=== PATIENT | female | born 1965 | race Caucasian/White ===

== ENCOUNTER 2022-06-28 14:01 | Emergency (ER) | payer SELFPAY ==
[~2022-06-28] VITALS: Ht 152.4 cm; Wt 65.4 kg
--- NOTE | 2022-06-28 14:50 | ED General ---
General Chief Complaint: Trauma-Non Activation Stated Complaint: ABDOMINAL,KNEE, AND LOWER BACK PAIN Nursing Triage Note: PT AMB TO [facility] 4 WITH COMPLAINT OF LEFT RIB/SIDE, KNEE PAIN. STATES SHE FELL OFF HER FIFTH WHEEL YESTERDAY AND LANDED ON LEFT SIDE. STATES SHE TOOK A TRAMADOL THIS MORNING AND DID NOT IMPROVE PAIN. STATES HAD NECK SURGERY RECENTLY. Source of Information: Patient Exam Limitations: No Limitations (JAKOB PEDRO MED STUDENT) History of Present Illness Date Seen by Provider: Jun 28, 2022 Time Seen by Provider: 14:43 Initial Comments Robert La is a 57 yo female who presents for back pain. Pt has hx of depression and COPD. Pt reports two days ago she fell off the top of her camper after slipping. She denies LOC or hitting her head. She does not remember what part of her body that made contact with the ladder and then the ground, but states her left chest, thoracic region and left knee hurt. The pain is constant and 8/10. Pt reports coughing and sneezing make the pain worse. She recently had neck surgery a month ago for a bulging disc and was prescribed toradol, so she took that with no relief. She has also taken ibuprofen. Pt is having trouble sleeping d/t pain. She vomited once last night and once this morning. Pt is hypertensive at 167/85. She is writhing around the bed in pain, stating she can't get comfortable. Timing/Duration: 1-2 Days Severity: Severe Modifying Factors: improves with Movement Associated Systoms: Nausea/Vomiting (JAKOB PEDRO MED STUDENT) Allergies and Home Medications Allergies Coded Allergies: Sulfa (Sulfonamide Antibiotics) (Verified Allergy, Unknown, 06/28/22) Patient Home Medication List Home Medication List Reviewed: Yes (NIECY MARQUES MD) Hydrocodone/Acetaminophen (Hydrocodone-Acetamin 7.5-325) 7.5 Mg-325 Mg Tablet, 1 EACH PO Q6H PRN for PAIN-MODERATE (5-7) Prescribed by: NIECY MARQUES on 06/28/22 1214 Review of Systems Review of Systems Constitutional: No chills, No fever EENTM: No blurred vision, No vision loss Respiratory: No cough, No short of breath Cardiovascular: No chest pain, No palpitations Gastrointestinal: nausea, vomiting Genitourinary: No dysuria, No frequency Musculoskeletal: back pain, other (left rib pain) Skin: No lesions, No lumps Psychiatric/Neurological: Denies Headache, Denies Numbness, Denies Paresthesia Hematologic/Lymphatic: No Symptoms Reported Immunological/Allergic: no symptoms reported (JAKOB PEDRO MED STUDENT) Past Fpnvivn-Vmkxoy-Akgnxa Hx Patient Social History Tobacco Use?: Yes Tobacco type used: Cigarettes Smoking Status: Current Everyday Smoker Use of E-Cig and/or Vaping dev: No Substance use?: No Alcohol Use?: No Pt feels they are or have been: No (JAKOB PEDRO STUDENT) Physical Exam Vital Signs Vital Signs - First Documented 06/28/22 14:06 Pulse 102 Resp 20 B/P (MAP) 167/85 (112) Pulse Ox 95 O2 Delivery Room Air (NIECY MARQUES MD) Vital Signs Capillary Refill : Less Than 3 Seconds (JAKOB PEDRO MED STUDENT) Height, Weight, BMI Height: '" Weight: lbs. oz. kg; 28.00 BMI Method: General Appearance: No Apparent Distress, WD/WN HEENT: PERRL/EOMI Neck: Full Range of Motion, Normal Inspection Respiratory: Chest Non Tender, Lungs Clear Cardiovascular: No Murmur, Tachycardia Gastrointestinal: Normal Bowel Sounds, Non Tender, Soft Back: Vertebral Tenderness (T6-T12 tender to palpation), Other (no bruising noted) Extremity: No Pedal Edema, Other (left knee painful to palpation, but no joint instability noted) Neurologic/Psychiatric: Alert, Oriented x3, Normal Mood/Affect Skin: Normal Color, Warm/Dry Lymphatic: No Adenopathy Comments Tenderness to palpation across left chest at midaxillary line rib 4-8 (JAKOB PEDRO MED STUDENT) Progress/Results/Core Measures Suspected Sepsis SIRS Temperature: Pulse: 102 Respiratory Rate: 20 Laboratory Tests 06/28/22 16:09: White Blood Count 9.1 Blood Pressure 167 /85 Mean: 112 Laboratory Tests 06/28/22 16:09: Creatinine 0.63, Platelet Count 112L (JAKOB PEDRO MED STUDENT) Results/Orders Lab Results Laboratory Tests Test 06/28/22 16:09 Range/Units White Blood Count 9.1 4.3-11.0 10^3/uL Red Blood Count 4.26 3.80-5.11 10^6/uL Hemoglobin 13.4 11.5-16.0 g/dL Hematocrit 40 35-52 % Mean Corpuscular Volume 93 80-99 fL Mean Corpuscular Hemoglobin 32 25-34 pg Mean Corpuscular Hemoglobin Concent 34 32-36 g/dL Red Cell Distribution Width 15.2 H 10.0-14.5 % Platelet Count 112 L 130-400 10^3/uL Mean Platelet Volume 10.1 9.0-12.2 fL Immature Granulocyte % (Auto) 0 % Neutrophils (%) (Auto) 57 42-75 % Lymphocytes (%) (Auto) 31 12-44 % Monocytes (%) (Auto) 10 0-12 % Eosinophils (%) (Auto) 2 0-10 % Basophils (%) (Auto) 1 0-10 % Neutrophils # (Auto) 5.2 1.8-7.8 X 10^3 Lymphocytes # (Auto) 2.8 1.0-4.0 X 10^3 Monocytes # (Auto) 0.9 0.0-1.0 X 10^3 Eosinophils # (Auto) 0.2 0.0-0.3 10^3/uL Basophils # (Auto) 0.1 0.0-0.1 10^3/uL Immature Granulocyte # (Auto) 0.0 0.0-0.1 10^3/uL Sodium Level 143 135-145 MMOL/L Potassium Level 3.9 3.6-5.0 MMOL/L Chloride Level 112 H 98-107 MMOL/L Carbon Dioxide Level 20 L 21-32 MMOL/L Anion Gap 11 5-14 MMOL/L Blood Urea Nitrogen 10 7-18 MG/DL Creatinine 0.63 0.60-1.30 MG/DL Estimat Glomerular Filtration Rate 104 BUN/Creatinine Ratio 16 Glucose Level 91 70-105 MG/DL Calcium Level 8.6 8.5-10.1 MG/DL (NIECY MARQUES MD) My Orders Orders - NIECY MARQUES MD Chest 1 View, Ap/Pa Only (06/28/22 15:07) Cbc With Automated Diff (06/28/22 15:07) Basic Metabolic Panel (06/28/22 15:07) Ct Thoracic Spine Wo (06/28/22 15:07) Ct Abdomen/Pelvis W (06/28/22 15:07) Fentanyl Inj (Sublimaze Injection) (06/28/22 15:15) Ondansetron Injection (Zofran Injectio (06/28/22 15:15) Iohexol Injection (Omnipaque 350 Mg/Ml 1 (06/28/22 15:45) Received Contrast (Hold Metformin- Contr (06/28/22 15:45) Ns (Ivpb) (Sodium Chloride 0.9% Ivpb Bag (06/28/22 15:45) Methylprednisolone Sod Succ (Solu-Medrol (06/28/22 16:15) Famotidine Injection (Pepcid Injection) (06/28/22 16:15) Diphenhydramine Injection (Benadryl Inje (06/28/22 16:15) Hydrocodone/Apap 7.5/325 Tab (Lortab 7. (06/28/22 17:15) (NIECY MARQUES MD) Medications Given in ED Current Medications Medications Dose Ordered Sig/Naya Route Start Time Stop Time Status Last Admin Dose Admin Acetaminophen/ Hydrocodone Bitart 1 ea ONCE ONCE PO 06/28/22 17:15 06/28/22 17:16 DC 06/28/22 17:35 1 EA Diphenhydramine HCl 50 mg ONCE ONCE IVP 06/28/22 16:15 06/28/22 16:16 DC 06/28/22 16:47 50 MG Famotidine 20 mg ONCE ONCE IVP 06/28/22 16:15 06/28/22 16:16 DC 06/28/22 16:47 20 MG Fentanyl Citrate 50 mcg ONCE ONCE IVP 06/28/22 15:15 06/28/22 15:16 DC 06/28/22 15:36 50 MCG Iohexol 100 ml ONCE ONCE IV 06/28/22 15:45 06/28/22 15:46 DC 06/28/22 16:57 75 ML Methylprednisolone Sodium Succinate 125 mg ONCE ONCE IVP 06/28/22 16:15 06/28/22 16:16 DC 06/28/22 16:47 125 MG Ondansetron HCl 4 mg ONCE ONCE IVP 06/28/22 15:15 06/28/22 15:16 DC 06/28/22 15:36 4 MG Sodium Chloride 100 ml ONCE ONCE IV 06/28/22 15:45 06/28/22 15:46 DC 06/28/22 16:57 100 ML (NIECY MARQUES MD) Vital Signs/I&O 06/28/22 14:06 Pulse 102 Resp 20 B/P (MAP) 167/85 (112) Pulse Ox 95 O2 Delivery Room Air (NIECY MARQUES MD) Vital Signs/I&O Capillary Refill : Less Than 3 Seconds (JAKOB PEDRO MED STUDENT) Blood Pressure Mean: 112 Progress Note : Time: 16:33 Progress Note CXR showed central pulmonary vascular congestion. CT abd/pelvis and thoracic spine pending. CBC and CMP pending. Fentanyl given for pain control. 1647: CBC remarkable for plt 112. CMP showed Cl 112 and CO2 20. (JAKOB PEDRO MED STUDENT) Progress Note : Time: 17:23 Progress Note 57yo female fell from the top of a 5th wheel motor home 2 days ago. She has pain LUQ and wrapping around ribs to the back. Hurts worse to take a deep breath and move. Feels short of breath. Stable VS. no bruising/ecchymoses to ribs. Lung sounds clear bilaterally. No extremity weakness. Tenderness at the midline about T2/3 and T12. no saddle anesthesia. no n/v. no syncopal events. IMaging and labs look good. will treat with pain meds for a couple of days with return precautions. (NIECY MARQUES MD) Diagnostic Imaging Diagonstic Imaging: CT Comments [facility], [place] NAME: BESSIEROBERT D [facility] REC#: [id number] PT STATUS: REG ER : 1965 PHYSICIAN: NIECY MARQUES MD ADMIT DATE: 06/28/22/ER Draft Date of Exam:06/28/22 CT THORACIC SPINE WO CLINICAL INDICATIONS: Patient fell from buffaloer roof 2 days ago. Patient has back pain. EXAM: Axial CT scan of the thoracic spine performed without IV contrast. Sagittal and coronal reformatted images are created. Auto Exposure Controls were utilized during the CT exam to meet ALARA standards for radiation dose reduction. COMPARISON: None. FINDINGS: There is no acute thoracic spine fracture or dislocation. There is chronic Schmorl's node involving the inferior posterior aspect of the T6 vertebra. There is dense calcification and endplate sclerosis involving the T11 and T12 endplate regions. There are degenerative spurs involving the thoracic spine and its mid to upper portion. There is no significant bony central canal or neural foramen narrowing. There is anterior cervical disk fusion at the C6-C7 level noted. There is no evidence of rib fracture as visualized. There is atelectasis in both lung bases. Emphysematous lung disease changes are seen. IMPRESSION: 1: There is no evidence of acute thoracic spine fracture or dislocation. Dictated on workstation # [id number] Dict: 06/28/22 1709 Trans: 06/28/22 1716 [id number] Interpreted by: CINTHYA ARCHER MD Electronically signed by: Comments [facility] [place] [place] NAME: ROBERT AL [facility] REC#: [id number] PT STATUS: REG ER : 1965 PHYSICIAN: NIECY MARQUES MD ADMIT DATE: 06/28/22/ER Signed Date of Exam:06/28/22 CHEST 1 VIEW, AP/PA ONLY INDICATION: Fall, with left-sided rib pain. Frontal chest obtained at 3:31 p.m. FINDINGS: Heart is borderline in size. There is central vascular congestion. There is no consolidation, pneumothorax, or pleural fluid. No overt bony abnormality is seen on this single view. IMPRESSION: Borderline heart size with central vascular congestion. No pneumothorax, pleural fluid, or focal infiltrate. Dictated by: Dictated on workstation # [id number] Dict: 06/28/22 1547 Trans: 06/28/22 1657 [id number] Interpreted by: NICO LOPEZ MD Electronically signed by: NICO LOPEZ MD 06/28/22 165 Diagonstic Imaging: CT Comments [facility] [place] [place] NAME: ROBERT LA [facility] REC#: [id number] PT STATUS: REG ER : 1965 PHYSICIAN: NIECY MARQUES MD ADMIT DATE: 06/28/22/ER Draft Date of Exam:06/28/22 CT ABDOMEN/PELVIS W CLINICAL INDICATION: Patient fell from camper roof two days ago and has back pain. EXAM: Axial CT scan of the abdomen and pelvis performed with 75 mL of Omnipaque 350 IV contrast. Sagittal and coronal reformatted images are created. Auto Exposure Controls were utilized during the CT exam to meet ALARA standards for radiation dose reduction. COMPARISON: CT scan of the thoracic spine without contrast dated 06/28/2022. FINDINGS: There is mild atelectasis involving posterior aspects of both lung bases. The liver has lobulated borders which may be seen with liver cirrhosis. Liver is slightly heterogeneous. Otherwise, liver shows no acute or traumatic abnormality. The spleen, pancreas, and adrenal glands are unremarkable. Gallbladder is surgically absent. Both kidneys are unremarkable with no hydronephrosis, mass, or stones. There is no intra-abdominal free air or free fluid. The bladder is fluid filled and otherwise unremarkable. Uterus is surgically absent. Both ovaries are not seen and may be atretic or surgically absent as well. There is no intestinal obstruction. There is no lymphadenopathy. The extra-abdominal and extrapelvic soft tissue structures are unremarkable. There is a slightly displaced fracture of the left L2 transverse process. There appears to be slight sclerosis in the fracture margin regions, and this fracture is of unknown age. There is no adjacent soft tissue swelling in the region of the fracture. IMPRESSION: 1: There is a slightly displaced left L2 transverse process fracture which is of unknown age. Clinical correlation for pain in this region would help better evaluate. 2: Otherwise, there is no acute fracture seen. 3: There is no acute abdominal or pelvic organ injury, intra-abdominal free air, or free fluid. There is no viscus injury. 4: Liver findings may be seen with liver cirrhosis. Dictated on workstation # [id number] Dict: 06/28/22 1711 Trans: 06/28/22 1722 [id number] Interpreted by: CINTHYA ARCHER MD Electronically signed by: (NIECY MARQUES MD) Departure Impression Primary Impression: Left upper quadrant abdominal pain Additional Impression: L2 transverse process fracture Disposition: 01 HOME, SELF-CARE Condition: Improved Departure-Patient Inst. Decision time for Depature: 17:34 (NIECY MARQUES MD) Referrals: NO,LOCAL PHYSICIAN (PCP) Primary Care Physician [facility] Patient Instructions: Contusion (DC), LOCAL PHYSICIAN LIST Add. Discharge Instructions: Pain medications, hydrocodone 1 every 6 hours as needed for pain. You can take an additional extra strength Tylenol with this hydrocodone tablet. This medication can make you sleepy do not drive and take it. It can also contribute to constipation. You should be taking stool softeners while taking narcotic pain medications. Cold compresses or [id number] pain patches to the sore area of your left abdomen/side as needed/directed. Follow-up with your primary care doctor. If you have any new, worsening or concerning symptoms please come back to the emergency department for reevaluation. Scripts Hydrocodone/Acetaminophen (Hydrocodone-Acetamin 7.5-325) 7.5 Mg-325 Mg Tablet 1 EACH PO Q6H PRN for PAIN-MODERATE (5-7), #15 TAB Prov: NIECY MARQUES MD 06/28/22 Work/School Note: Work Release Form Date Seen in the Emergency Department: Jun 28, 2022 Return to Work: Jun 30, 2022 Verification and Attestation of Medical Student E/M Service A medical student performed and documented this service in my presence. I reviewed and verified all information documented by the medical student and made modifications to such information, when appropriate. I personally performed the physical exam and medical decision making. Niecy Marques, Jun 28, 2022,17:23 (NIECY MARQUES MD) JAKOB PEDRO MED STUDENT Jun 28, 2022 14:50 NIECY MARQUES MD Jun 28, 2022 17:28
[2022-06-28] MEDS ORDERED: ONDANSETRON 4 MG/2 ML (SDV) Z0FRAN IVP ONE (15:15)
[2022-06-28] MEDS ORDERED: fentaNYL INJ 100 MCG/2 ML AMP IVP ONE (15:15)
[2022-06-28] MEDS ORDERED: HOLD METFORMIN - RECEIVED CONTRAST 20 ML VIAL IV SCH (15:45)
[2022-06-28] MEDS ORDERED: IOHEXOL 350 MG/ML 100 ML (OMNIPAQUE 350) VIAL IV ONE (15:45)
[2022-06-28] MEDS ORDERED: NS 100 ML (IVPB) BAG IV ONE (15:45)
--- NOTE | 2022-06-28 15:59 | Diagnostic Imaging Report ---
INDICATION: Fall, with left-sided rib pain. Frontal chest obtained at 3:31 p.m. FINDINGS: Heart is borderline in size. There is central vascular congestion. There is no consolidation, pneumothorax, or pleural fluid. No overt bony abnormality is seen on this single view. IMPRESSION: Borderline heart size with central vascular congestion. No pneumothorax, pleural fluid, or focal infiltrate. Dictated by: Dictated on workstation # [id number]
[2022-06-28] MEDS ORDERED: diphenhydrAMINE 50 MG/ML INJ (BENADRYL) IVP ONE (16:15)
[2022-06-28] MEDS ORDERED: FAMOTIDINE 20MG/2ML IV (PEPCID) IVP ONE (16:15)
[2022-06-28] MEDS ORDERED: methylPREDNISolone 125 MG (Solu-MEDROL) VIAL IVP ONE (16:15)
[2022-06-28 16:30] LABS: BASOPHILS # (AUTO) 0.1 10^3/uL (0.0-0.1); BASOPHILS % (AUTO) 1 % (0-10); EOSINOPHILS # (AUTO) 0.2 10^3/uL (0.0-0.3); EOSINOPHILS % (AUTO) 2 % (0-10); HEMATOCRIT 40 % (35-52); HEMOGLOBIN 13.4 g/dL (11.5-16.0); LYMPHOCYTES # (AUTO) 2.8 X 10^3 (1.0-4.0); LYMPHOCYTES % (AUTO) 31 % (12-44); MEAN CORPUSCULAR HEMOGLOBIN 32 pg (25-34); MEAN CORPUSCULAR HGB CONC 34 g/dL (32-36); MEAN CORPUSCULAR VOLUME 93 fL (80-99); MEAN PLATELET VOLUME 10.1 fL (9.0-12.2); MONOCYTES # (AUTO) 0.9 X 10^3 (0.0-1.0); MONOCYTES % (AUTO) 10 % (0-12); NEUTROPHILS # (AUTO) 5.2 X 10^3 (1.8-7.8); NEUTROPHILS % (AUTO) 57 % (42-75); PLATELET COUNT 112 10^3/uL (130-400); WHITE BLOOD COUNT 9.1 10^3/uL (4.3-11.0)
[2022-06-28 16:31] LABS: POTASSIUM 3.9 MMOL/L (3.6-5.0)
[2022-06-28 16:32] LABS: CALCIUM 8.6 MG/DL (8.5-10.1)
[2022-06-28 16:37] LABS: CREATININE SERUM 0.63 MG/DL (0.60-1.30)
[2022-06-28] MEDS ORDERED: HYDROcodone/APAP 7.5 MG/325 MG (LORTAB, LORCET PLUS) TABLET PO ONE (17:15)
--- NOTE | 2022-06-28 17:16 | Diagnostic Imaging Report ---
CLINICAL INDICATIONS: Patient fell from camper roof 2 days ago. Patient has back pain. EXAM: Axial CT scan of the thoracic spine performed without IV contrast. Sagittal and coronal reformatted images are created. Auto Exposure Controls were utilized during the CT exam to meet ALARA standards for radiation dose reduction. COMPARISON: None. FINDINGS: There is no acute thoracic spine fracture or dislocation. There is chronic Schmorl's node involving the inferior posterior aspect of the T6 vertebra. There is dense calcification and endplate sclerosis involving the T11 and T12 endplate regions. There are degenerative spurs involving the thoracic spine and its mid to upper portion. There is no significant bony central canal or neural foramen narrowing. There is anterior cervical disk fusion at the C6-C7 level noted. There is no evidence of rib fracture as visualized. There is atelectasis in both lung bases. Emphysematous lung disease changes are seen. IMPRESSION: 1: There is no evidence of acute thoracic spine fracture or dislocation. Dictated by: Dictated on workstation # [id number]
--- NOTE | 2022-06-28 17:23 | Diagnostic Imaging Report ---
CLINICAL INDICATION: Patient fell from camper roof two days ago and has back pain. EXAM: Axial CT scan of the abdomen and pelvis performed with 75 mL of Omnipaque 350 IV contrast. Sagittal and coronal reformatted images are created. Auto Exposure Controls were utilized during the CT exam to meet ALARA standards for radiation dose reduction. COMPARISON: CT scan of the thoracic spine without contrast dated 06/28/2022. FINDINGS: There is mild atelectasis involving posterior aspects of both lung bases. The liver has lobulated borders which may be seen with liver cirrhosis. Liver is slightly heterogeneous. Otherwise, liver shows no acute or traumatic abnormality. The spleen, pancreas, and adrenal glands are unremarkable. Gallbladder is surgically absent. Both kidneys are unremarkable with no hydronephrosis, mass, or stones. There is no intra-abdominal free air or free fluid. The bladder is fluid filled and otherwise unremarkable. Uterus is surgically absent. Both ovaries are not seen and may be atretic or surgically absent as well. There is no intestinal obstruction. There is no lymphadenopathy. The extra-abdominal and extrapelvic soft tissue structures are unremarkable. There is a slightly displaced fracture of the left L2 transverse process. There appears to be slight sclerosis in the fracture margin regions, and this fracture is of unknown age. There is no adjacent soft tissue swelling in the region of the fracture. IMPRESSION: 1: There is a slightly displaced left L2 transverse process fracture which is of unknown age. Clinical correlation for pain in this region would help better evaluate. 2: Otherwise, there is no acute fracture seen. 3: There is no acute abdominal or pelvic organ injury, intra-abdominal free air, or free fluid. There is no viscus injury. 4: Liver findings may be seen with liver cirrhosis. Dictated by: Dictated on workstation # [id number]
[2022-06-28] MEDS ORDERED: HYDR-3817 PO (17:35)
[2022-06-28 17:58] VITALS: BP 151/77
== END 2022-06-28 17:58 | disposition home or self-care (01) ==
LOC: ER 14:08
DX: S32.029A Unspecified fracture of second lumbar vertebra, initial encounter for closed fracture (principal); R10.12 Left upper quadrant pain; M54.6 Pain in thoracic spine; M25.562 Pain in left knee; F17.210 Nicotine dependence, cigarettes, uncomplicated; W17.89XA Other fall from one level to another, initial encounter
CPT/HCPCS: 36415; 71045; 72128; 74177; 80048; 85025

== ENCOUNTER 2022-07-08 17:21 | Emergency (ER) | payer MEDICAID ==
[~2022-07-08] VITALS: Ht 152 cm; Wt 70.0 kg
[~2022-07-08 17:21] MED LIST: HYDR-3817 PO
[2022-07-08 17:22] VITALS: BP 139/74
--- NOTE | 2022-07-08 17:33 | ED Integumentary General ---
General Chief Complaint: Bite-Animal/Human/Insect Stated Complaint: POSS BITE ON LEFT UPPER THIGH History of Present Illness Date Seen by Provider: Jul 08, 2022 Time Seen by Provider: 17:30 Initial Comments Patient reports possible spider bite to left thigh. States that she felt something bite her but did not actually see what bit her. Has had increasing redness, swelling and pain to the area since that time. Denies fever or drainage. Reports that she has pulled the scab off a few times. Took a Hydrocod one at home for pain and has now ran out of those. Is asking for additional Hydrocodone. Timing/Duration: getting worse Severity: moderate Location: extremities Possible Cause: insect bite Associated Symptoms: No fever Allergies and Home Medications Allergies Coded Allergies: Sulfa (Sulfonamide Antibiotics) (Verified Allergy, Unknown, 06/28/22) Patient Home Medication List Home Medication List Reviewed: Yes Doxycycline Hyclate (Doxycycline Hyclate) 100 Mg Tablet, 100 MG PO BID Prescribed by: America Baltazar on 07/08/221735 Hydrocodone/Acetaminophen (Hydrocodone-Acetamin 7.5-325) 7.5 Mg-325 Mg Tablet, 1 EACH PO Q6H PRN for PAIN-MODERATE (5-7) Prescribed by: NIECY MARQUES on 06/28/221735 Review of Systems Review of Systems Constitutional: No chills, No fever Musculoskeletal: joint swelling (left thigh) Skin: other (redness and swelling to left lateral thigh) All Other Systems Reviewed Negative Unless Noted: Yes Past Anyznyi-Lfjgbg-Nikuvd Hx Family Medical History Reviewed Nursing Family Hx Physical Exam Vital Signs Vital Signs - First Documented 07/08/22 17:22 Temp 36.8 Pulse 78 Resp 16 B/P (MAP) 139/74 (95) Pulse Ox 97 O2 Delivery Room Air Capillary Refill : General Appearance: no apparent distress Extremities: normal range of motion, swelling (left lateral thigh with swelling, induration, purplish hue center with crust, no active drainage, appears to be spider bite.) Neurologic/Psychiatric: alert, normal mood/affect, oriented x 3 Skin: warm/dry, other (erythema and induration to left thigh as described above) Progress/Results/Core Measures Results/Orders My Orders Orders - AMERICA BALTAZAR APRN Doxycycline Hyclate Tablet (Vibramycin T (07/08/22 17:45) Vital Signs/I&O 07/08/22 17:22 Temp 36.8 Pulse 78 Resp 16 B/P (MAP) 139/74 (95) Pulse Ox 97 O2 Delivery Room Air Progress Progress Note : Progress Note Exam is consistent with possible spider bite. Will treat with antibiotics. She requested Hydrocodone for pain. I declined. Instructed that she can take over the counter medications for pain, Explained to her that the antibiotics will help decrease the pain with treating the infection. reasons to return to the ER were discussed with patient. Departure Impression Primary Impression: Cellulitis of left thigh Disposition: HOME, SELF-CARE Condition: Stable Departure-Patient Inst. Decision time for Depature: 17:34 Referrals: NO,LOCAL PHYSICIAN (PCP/Family) Primary Care Physician Patient Instructions: Cellulitis (Skin Infection), Adult ED Add. Discharge Instructions: 1. Home and rest. 2. Push fluids. 3. Alternate Tylenol/Ibuprofen as needed for pain. 4. Follow up with PCP as needed. 5. Doxycycline as directed until finished. 6. Return here if worse or concerns. All discharge instructions reviewed with patient and/or family. Voiced understanding. Scripts Doxycycline Hyclate (Doxycycline Hyclate) 100 Mg Tablet 100 MG PO BID for 7 Days, #14 TAB 0 Refills Prov: AMERICA BALTAZAR APRN 07/08/22 AMERICA BALTAZAR APRN Jul 08, 2022 17:33
[2022-07-08] MEDS ORDERED: DOXY100T2 PO (17:36)
[2022-07-08] MEDS ORDERED: DOXYCYCLINE 100 MG (VIBRAMYCIN) TABLET PO SCH (17:45)
== END 2022-07-08 17:42 | disposition home or self-care (01) ==
LOC: EDUNIT# 17:21 → ER 17:24
DX: L03.116 Cellulitis of left lower limb (principal)
CPT/HCPCS: 99283